=== PATIENT | male | born 1975 | race Caucasian/White ===

== ENCOUNTER 2023-12-08 21:01 | Inpatient (IN) | payer OTHER, SELFPAY ==
[2023-12-08] VITALS (52 sets, daily range): BP systolic 115–234; BP diastolic 73–146; BMI 21.9
[2023-12-08 16:16] LABS: Glucose - Point of Care 83 mg/dl (70-99)
--- NOTE | 2023-12-08 16:20 | ED.CVA ---
History of Present Illness
General
Chief Complaint: CVA/TIA Symptoms
Source: patient
Exam Limitations: none
Time Seen by Provider: 12/08/23 16:02
Nursing documentation reviewed up to this point in time: agreed with
Onset of Stroke Symptoms
Onset of symptoms known: Yes
Date of onset of symptoms: 12/08/23
Time of onset of symptoms: 15:15
Time pt last seen normal is known: Yes
Date last time pt seen normal: 12/08/23
Time last time pt seen normal: 15:15
History of Present Illness
History of Present Illness:
Patient is a 48-year-old male who presented to the health clinic at the present and had his blood pressure checked which turned out to be high and he stood up and fell to the right side and was found to have a right facial droop and weakness on the
right side. This was 45 minutes prior to the emergency department. Patient does state he has a headache. Patient denies history of hypertension, diabetes or elevated cholesterol. Patient reportedly had right-sided weakness and slurred speech
with right facial droop. Patient was brought in by EMS as a stroke alert and went straight to CAT scan.
Past History
Past History
ED Past Medical History: HTN and Other (Pneumothorax)
ED Past Surgical History: None
Social History
Tobacco: Non-smoker
Alcohol: None
Drug: None
Personal: Single
Living: with family
Review of Systems
Review of Systems
All Other Systems: ROS reviewed and negative except as documented in HPI and ROS
Constitutional: Reports no symptoms
EENT: Reports no symptoms
Respiratory: Reports no symptoms
Cardiac: Reports no symptoms
ABD/GI: Reports no symptoms
: Reports no symptoms
Musculoskeletal: Reports no symptoms
Skin: Reports no symptoms
Neurological: Reports headache and weakness; Denies numbness
Hematologic/Lymphatic: Reports no symptoms
Phy Exam
Physical Exam
Physical Exam:
Physical Exam
General: moderate distress, alert and appropriate, well nourished, well hydrated
HENT: Normocephalic and atraumatic, supple with no lymphadenopathy, no thyromegaly
Eyes: Clear sclera, conjuctiva without injection, extraocular muscles intact, questionable right superior lateral quadrantanopsia
Heart: Regular rhythm and rate. No S3, S4. No murmur. No NVD, bruit
Lungs: No respiratory distress, no stridor, lung sounds clear and equal bilaterally, chest wall symmetrical and nontender
Abdomen: Soft, nontender, no organomegaly, no CVA tenderness, BS good
Neuro: Alert and oriented x 3, CN with slurred speech and right facial droop, 4 out of 5 right-sided motor focality, no cerebellar dysfunction, sensory intact
Skin: no rash
Psychiatric: well kept. interactive and cooperative
Extremities: No edema, cyanosis, tenderness
Scores
NIH Stroke Score
Level of Consciousness: 0 - Alert
LOC Questions: 0-Answers both correctly
LOC Commands: 0-Performs both correctly
Best Horizontal Gaze: 0-Normal
Visual Harris: 1=Partial hemianopia
Facial Palsy: 1=Minor paralysis
Motor - Right Arm: 1=Drift < 10 seconds
Motor - Left Arm: 0=No drift 10 seconds
Motor - Right Le-Drift < 5 seconds
Motor - Left Le-No drift 5 seconds
Limb Ataxia: 0-Absent
Sensation: 0-Normal
Best Language: 1-Mild aphasia
Dysarthria: 1-Mild slurring
Extinction and Inattention: 0-No abnormality
Total Score:: 6
Course
Orders/Labs/Results
Orders:
Orders
12/08/23 15:57
CT Head W/o Cont STROKE ALERT Stat
Comment:
Reason For Exam: aphasia, r sided weakness
CT Head/Neck Ang STROKE ALERT Stat
Comment:
Reason For Exam: aphasia, R sided weakness
12/08/23 16:03
Electrocardiogram (*1) Stat
Reason for Study: Other
Other Reason for Exam: neuro symptoms
Cardiac Monitoring- Treatment ONCE
EKG- Treatment ONCE
12/08/23 16:11
Complete Blood Count/With Diff Urgent
Comprehensive Metabolic Panel Urgent
Erythrocyte Sed Rate Urgent
PTT Urgent
Prothrombin Time Urgent
Troponin I Urgent
12/08/23 16:17
Nicardipine 40 mg/200 ml [Cardene] 40 mg in 200 ml .ROUTE .STK-MED
12/08/23 16:21
Nicardipine 40 mg/200 ml [Cardene] 40 mg in 200 ml IV NOW
Initial dose in mg/hr, then titrate:: 5
Titrate to keep:: SBP 140 - 160 mmHg
Titrate by mg/hr:: 2.5 mg/hr
Frequency of titrations (minutes):: 5-15 minutes
Maximum dose in mg/hr:: 15
Begin to taper infusion when:: Remained at goal for 2hrs
Taper by mg/hr:: 2.5 mg/hr
Frequency of taper (minutes) if patient maintains goal:: every 15-30 minutes
Taper to off?: Yes
If infusion off & no longer maintaining goal:: Contact Provider
12/08/23 16:25
MRI Brain [MR Brain W/o & With Contrast] Urgent
Comment:
Reason For Exam: acute/subacute left basal ganglia infarct
Recent pill cam endoscopy?: No
12/08/23 17:02
Metoprolol [Lopressor] 5 mg .ROUTE .STK-MED ONE
12/08/23 17:07
Metoprolol [Lopressor] 5 mg IV NOW STA
12/08/23 18:17
Nicotine [Nicoderm Transdermal] 14 mg .ROUTE .STK-MED ONE
12/08/23 19:56
Acetaminophen [Tylenol] 1,000 mg PO NOW STA
12/09/23 08:00
Nicotine [Nicoderm Transdermal] 14 mg TRANSDERM DAILY
Abnormal Lab Results
12/08/23
16:11
RBC 3.99 L 10^6/uL
(4.70-6.10)
Hgb 11.4 L g/dL
(13.0-18.0)
Hct 34.0 L %
(39.0-52.0)
Absolute Neuts (auto) 6.7 H 10^3/uL
(1.4-6.5)
Absolute Monos (auto) 0.7 H 10^3/uL
(0.1-0.6)
Lymphocytes % 17.2 L %
(20.5-51.1)
ESR 24 H mm/hour
(0-20)
12/08/23 16:11
12/08/23 16:11
Vital Signs
Initial and Last Documented VS:
Initial Vital Signs
BP
234/125
12/08/23 16:00
Last Documented Vital Signs
Pulse Resp BP Pulse Ox
92 18 189/112 99
12/08/23 18:11 12/08/23 17:19 12/08/23 18:05 12/08/23 18:11
*Radiology
Radiology exam reviewed: radiology read reviewed (CT shows a left internal capsule acute/subacute infarct seen on CT, CTA and MRI.)
*Pulse Oximetry
Patient hypoxic: no
*EKG
Interpreted by ED Provider?: Yes
EKG Intrepretation Date: 12/08/23
EKG Intrepretation Time: 20:02
Interpretation: abnormal
Comparison EKG: no comparison EKG present
Heart Rate: 91
Rate: normal
Rhythm: sinus
[place]: normal axis
Interval: normal LA interval and long QT
QRS Pattern: normal QRS
Ischemia: no ischemia
*Shot Dropper Interpretation
Rate: normal
Interpretation: normal
Heart Rate: 90
Rhythm: sinus
*Critical Care Note
Total Time (30-74mins, 75-104mins- exclusive of procedures): 45 minutes
Update Note
Update Note:
Patient seen by neurology. Decision was made by them not to give tPA because internal Risk of Bleeding in Light of Uncontrolled Hypertension. Patient's Neurologic Exam Improved with Controlled Blood Pressure. Peers to Be a Hypertensive Emergency.
Patient Will Be Admitted
ED Attending Note
-
Portions of this chart may have been created with voice recognition software.� Occasional wrong word or��sound alike� substitutions may have occurred due to the inherent limitations of voice recognition software.
Discharge Plan
Departure
Patient Disposition: Admit
Date of Disposition: 12/08/23
Time of Disposition: 20:03
Admit to: Telemetry
Admit to doctor: Hospitalist
Presentation/result/management discussed w/ accepting MD/DO: Neurologist
Patient with high blood pressure during this ER visit?: Yes
Condition: Critical
Covid-19: Not Applicable
Discharge Problem:
CVA (cerebral vascular accident), Hypertensive emergency
Prescriptions:
No Action
hydrocodone-acetaminophen 1 TABLET tablet
1 tab PO Q4HPRN PRN (Reason: pain) Qty: 10 0RF
penicillin V potassium 500 MG tablet
500 mg PO Q6 Qty: 28 0RF
ibuprofen 600 MG tablet
600 mg PO Q6 Qty: 20 0RF
Referrals:
[facility] [Family Provider] -
Interventions
Interventions:
*Risk Screen - Suicide Last Done: 12/08/23 16:47
*General Assessment Last Done: 12/08/23 16:47
*Neglect/Abuse Screening Last Done: 12/08/23 16:47
*ED COVID-19 Vaccine History Last Done: 12/08/23 16:47
ED- Pulmonary Assessment Last Done: 12/08/23 16:18
ED- Neurological Assessment Last Done: 12/08/23 16:33
ED- Cardiac Assessment Last Done: 12/08/23 16:18
Discharge Date and Time
Print Language: TURKISH
[2023-12-08 16:26] LABS: % Basophils 0.6 % (0-2); % Eosinophils 3.4 % (0-6); % Immature Granulocytes 0.2 % (0-0.5); % Lymphocytes 17.2 % (20.5-51.1); % Neutrophils 71.6 % (42.2-75.2); Absolute Basophils 0.1 10^3/uL (0-0.2); Absolute Eosinophils 0.3 10^3/uL (0-0.7); Absolute Lymphocytes 1.6 10^3/uL (1.2-3.4); Absolute Monocytes 0.7 10^3/uL (0.1-0.6); Absolute Neutrophils 6.7 10^3/uL (1.4-6.5); Hemoglobin 11.4 g/dL (13.0-18.0); Mean Corp Hgb Conc. 33.5 g/dL (33.0-37.0); Mean Corpuscular Hgb 28.6 pg (27.0-31.0); Mean Corpuscular Volume 85.2 fL (80.0-94.0); Mean Platelet Volume 10.1 fL (7.4-10.4); Nucleated Red Blood Cells % 0 % (-); Platelet Count 273 10^3/uL (130-400); Red Blood Cell Count 3.99 10^6/uL (4.70-6.10); Red Cell Dist. Width 13.7 % (11.5-14.5); White Blood Cell Count 9.3 10^3/uL (4.8-10.8)
[2023-12-08] MEDS: CARDENE 200 IV ×2 (16:26→23:44)
[2023-12-08 16:37] LABS: Erythrocyte Sed Rate 24 mm/hour (0-20)
--- NOTE | 2023-12-08 16:39 | CON.NEURO4 ---
Consultation - Neurology 4
-
CONSULTING PHYSICIAN: Tylor Corea MD (Neurology)
REFERRING PHYSICIAN: ED/hospitalist
DICTATED BY: Tylor Corea
DATE/TIME OF REQUEST: December 08 2023
DATE/TIME OF CONSULTATION: December 08, 2023 1630
Reason for Consultation: Right-sided weakness
History of Present Illness:
This is a 48 year old right handed male who has presented to the hospital with chief complaint of right-sided weakness. He gives a history of drug use uncontrolled hypertension traumatic brain injury previous strokes with residual right sided
weakness. [facility]. He was seen in the medical unit for detox. At that time his blood pressure was elevated at 210/110. He started complaining of a headache and right arm weakness and passed out.
He was then brought into the emergency room and had an emergent CT head which revealed a large left centrum semiovale and basal ganglia encephalomalacia, extensive small vessel disease, focal atrophy of the frontal and occipital regions
I saw the patient in the emergency room and at time of my evaluation patient was awake but confused and oriented to self. Speech was slurred with expressive aphasia. He had a right facial weakness and mild right sided weakness. There was no
hyperreflexia or Babinski's.
Past Medical History: Drug use uncontrolled hypertension
Surgical History: Unknown
Family History: Unknown
Social History: Chronic drug use
Allergies: Unknown
Home Medications: Unknown
Review of Symptoms:
Patient denies any fever, headache, chest pain, shortness of breath, GI or symptoms.
�Per the HPI.�All systems are reviewed negative except above.
�
Vital Signs:
The patient has a Pulse 90 Resp17 BP 141/88 Pulse Ox 99
Physical Exam:
The patient is afebrile, heart sounds S1 and S2 are regular , and chest is clear to auscultation bilaterally.
NIH Stroke Scale (if applicable):
I performed the NIH stroke scale on the patient. The patient scored 6 points on the NIH stroke scale assessment, which were assigned as follows:
Neurologic Examination:
The patient is awake, confused and oriented x person. He is able to follow commands and can answer questions . There is aphasia and dysarthria.
On cranial nerve assessment, pupils are 3 mm bilateral, round and reactive to light and accommodation. Visual herzog are full. Extraocular movements are intact. Facial sensations are intact and bilaterally symmetrical,
there is right facial asymmetry. Hearing is intact bilaterally to normal conversation volume. Tongue palate and uvula are midline. Sternocleidomastoid strengths are full bilaterally.
Motor strengths are 4/5 right upper and lower extremities . Strength is 5 out of 5 left extremity. There is right drift or involuntary movement noted.
Deep tendon reflexes are + bilateral upper and lower extremities and Babinski is absent bilaterally.
Sensations of pain, touch, temperature and vibration are decreased on the right. There was no extinction noted on double simultaneous stimulation. Coordination is intact by finger to nose bilaterally.
Patient is bedbound and unable to test Romberg's or gait
Lab Results: Addendum
Neuro Imaging: CT head shows left centrum semiovale and basal ganglia encephalomalacia with focal areas of insult frontal and temporal occipital
Impression:
Mr. BREANNA JOHNSTON is a 48 year old M who has presented to the hospital with chief complaint of right-sided weakness secondary to uncontrolled hypertension
Differentials for the patient's presentation include:
1. Hypertensive encephalopathy
2. Extension of previous cerebrovascular infarction
Patient is not a candidate for TNK/ tPA due to uncontrolled hypertension and previous CVA with significant areas of encephalomalacia subcortically that are likely to hemorrhage bleed:
IV Tenecteplase/IAT candidacy
Recommendations:
1. Blood pressure control to keep MAP 100
2. Detox protocol
3. Aspirin 325
4. MRI of brain
5. Echocardiogram
6. PT/OT
7. Depakote 1000mg loading with Depakote 500 mg p.o. twice daily maintenance
Discussed patient care with: ED
Total Time Spent with Patient (in minutes): 30
Vital Signs and Labs
-
Vital Signs and Labs:
Vital Signs
Pulse Resp BP Pulse Ox
90 17 141/88 99
12/08/23 16:40 12/08/23 16:40 12/08/23 16:40 12/08/23 16:40
Lab Results
12/08/23 16:11
12/08/23 16:11
PT 13.5 Sec (11.4-14.6) 12/08/23 16:11
INR 1.05 12/08/23 16:11
APTT 30.2 Sec (23.4-35.0) 12/08/23 16:11
Sodium 139 mmol/L (135-145) 12/08/23 16:11
Potassium 4.5 mmol/L (3.5-5.1) 12/08/23 16:11
BUN 20 mg/dl (9-20) 12/08/23 16:11
Glucose 80 mg/dl (70-99) 12/08/23 16:11
Calcium 9.9 mg/dl (8.4-10.2) 12/08/23 16:11
[2023-12-08 16:40] LABS: ALT (SGPT) 16 U/L (0-50); AST (SGOT) 23 U/L (17-59); Albumin 4.8 g/dl (3.5-5.0); Alkaline Phosphatase 92 U/L (38-126); Blood Urea Nitrogen 20 mg/dl (9-20); Calcium 9.9 mg/dl (8.4-10.2); Carbon Dioxide 27 mmol/L (22-30); Chloride 103 mmol/L (98-107); Estimated Creatinine Clearance 73 ml/min; Glucose 80 mg/dl (70-99); Potassium 4.5 mmol/L (3.5-5.1); Sodium 139 mmol/L (135-145); Total Bilirubin 1.1 mg/dl (0.2-1.3); Total Protein 7.9 g/dl (6.3-8.2); eGFR > 60.00
[2023-12-08 16:42] LABS: APTT 30.2 Sec (23.4-35.0); INR 1.05; PT 13.5 Sec (11.4-14.6)
[2023-12-08 16:52] LABS: Troponin I < 0.012 ng/ml
[2023-12-08] MEDS: LOPRESSOR 5 MG IV (17:09)
[2023-12-08] MEDS: NICODERM TRANSDERMAL 14 MG TRANSDERM (18:19)
[2023-12-08] MEDS: TYLENOL 1000 MG PO (20:03)
--- NOTE | 2023-12-08 20:40 | HPS.HSE ---
Family Physician
-
Family Physician: [facility]
Chief Complaint
-
Syncope / R Weakness
History of Present Illness
Patient is a 48y M with PMH significant for suspected substance abuse who presents to ED from detention for evaluation of syncopal event, hypertension and slurred speech. Patient states that he was on his way to the [facility] for a routine visit
and that is the last thing he remembers. He denies any complaints / symptoms prior to losing consciousness. Custodial staff note that patient developed R facial droop and R weakness and then passed out. His BP was markedly elevated in the infirmary
> 200 systolic. He was transported to the ED for further evaluation.
Patient regained consciousness in the ED. He was initially somewhat confused. At the time of my exam, patient was awake and alert.
He denies any prior history of medical issues, trauma / injury, hypertension, prior strokes, etc.
Patient denies any substance use with the exception of cigarettes and medical marijuana; however, he does admit that he uses a workout supplement called 'Kraze' which he notes 'will make you test positive for amphetamines'.
Patient has been in the detention for about one week in substance withdrawal program.
At the time of my examination, patient complains of diffuse headache and some slurred speech. He denies any other complaints including chest pain, palpitations, numbness / tingling, extremity weakness, etc.
Medical History
Past Medical History
Past Medical History: Reports Other
Additional Past Medical History:
Substance Use Disorder
Spontaneous Pneumothorax
Past Surgical History: Reports None
Social History
Tobacco: Smoker (Current every day smoker. Approx 1 ppd.)
Alcohol: None
Drug: Marijuana ('Medicinal'. ) and Other (Amphetamines / 'Kraze')
Living: Custodial
Family History
Family History: Not pertinent
Allergies / Home Medications
Allergies reflects when Allergies were last updated in [facility].
Home Medications with original date entered in [facility]
Allergy/Medication List:
Allergies
Allergy/AdvReac Type Severity Reaction Status Date / Time
No Known Allergies Allergy Verified 12/08/23 16:24
Home Medications
clonazepam 0.5 mg tablet 0.5 mg PO HS 12/08/23
diphenhydramine HCl 25 mg tablet 25 mg PO BID 12/08/23
quetiapine 25 mg tablet 25 mg PO DAILY 12/08/23
quetiapine 50 mg tablet 50 mg PO HS 12/08/23
Review of Systems
-
History Source: Patient
A 12 point ROS was completed and negative except as noted: Yes
Constitutional: Denies Fever or Chills
EENT: Denies Sore Throat
Respiratory: Denies Cough or Trouble Breathing
Cardiac: Denies Chest Pain or Palpitations
Abdomen/GI: Denies Abdominal Pain, Nausea, Vomiting or Diarrhea
: Denies Dysuria, Frequency or Flank Pain
Musculoskeletal: Denies Joint Pain or Edema
Neurological: Reports Headache and Other (Slurred speech); Denies Weakness or Numbness
Psych: Reports Anxiety; Denies Depression
Physical Exam
Vital Signs
Vital Signs
Pulse Resp BP Pulse Ox
92 18 189/112 99
12/08/23 18:11 12/08/23 17:19 12/08/23 18:05 12/08/23 18:11
Physical Exam
General: Other (Anxious 48y M in mild distress due to anxiety.)
HEENT: PERRLA and Other (Dry MM.)
Respiratory: Clear; No Wheezes, Rales or Rhonchi
Cardiac: S1/S2 and Regular Rhythm; No Murmur
GI: Soft, Non Tender, Non Distended and Normal Bowel Sounds
Musculoskeletal: No Clubbing, No Cyanosis and No Edema
Neuro: AO x 3 and Other (R facial droop. Dysarthria. Perhaps mild RUE weakness compared to the L.)
Psych: Agitated and Anxious
Laboratory Results
-
12/08/23 16:11
12/08/23 16:11
Laboratory Results
PT 13.5 Sec (11.4-14.6) 12/08/23 16:11
INR 1.05 12/08/23 16:11
APTT 30.2 Sec (23.4-35.0) 12/08/23 16:11
Total Bilirubin 1.1 mg/dl (0.2-1.3) 12/08/23 16:11
AST 23 U/L (17-59) 12/08/23 16:11
ALT 16 U/L (0-50) 12/08/23 16:11
Alkaline Phosphatase 92 U/L (38-126) 12/08/23 16:11
Troponin I < 0.012 ng/ml 12/08/23 16:11
Impression/Plan
-
A/P: Patient is a 48y M with no significant PMH who presents to ED from detention for evaluation of R sided weakness and syncopal event.
Acute on Chronic L Thalamic CVA
Hypertensive Emergency
- Admit to ICU for further evaluation and treatment.
- CT, CTA and MRI have been completed and were reviewed.
- Imaging suggests old L thalamic infarct / area of encephalomalacia with acute surrounding area of ischemia.
- This likely explains his presenting symptoms.
- Patient not aware of any prior stroke, TBI, etc.
- BP markedly elevated on arrival - improved on nicardipine.
- Continue nicardipine and titrate as needed.
- Begin oral medications in the AM for BP control and titrate off of IV infusion.
- Neurology evaluation appreciated.
- Continue Depakote as per Neuro recommendations.
- ASA daily for now.
- Follow for changes in neuro exam.
- Echo in the AM.
- Suspect that etiology of his stroke(s) is hypertension related to substance abuse and / or subsequent withdrawal.
Substance Use Disorder
- Suspected amphetamine abuse - although patient denies this as noted in HPI.
- Currently anxious / agitated somewhat.
- Continue withdrawal regimen from detention.
- Add PRN BZDs for breakthrough symptoms of agitation / anxiety.
- Check UDS.
DVT Prophylaxis: SCDs
Code Status: Full
[2023-12-08 22:13] LABS: Urine Albumin Negative (Neg - Trace); Urine Bilirubin Negative (Negative); Urine Character Clear (Clear); Urine Color Yellow; Urine Glucose Negative (Negative); Urine Ketone Trace (Negative); Urine Leukocyte Negative (Negative); Urine Nitrite Negative (Negative); Urine Occult Blood Negative (Negative); Urine Urobilinogen Negative (Neg - 1+)
[2023-12-08 22:20] LABS: Amphetamines Negative (Negative); Barbiturates Negative (Negative); Benzodiazepines Negative (Negative); Buprenorphine Negative (Negative); Cocaine Negative (Negative); Marijuana Positive (Negative); Methadone Negative (Negative); Methamphetamines Negative (Negative); Opiates Negative (Negative); Phencyclidine Negative (Negative); Tricyclic Antidepressants Negative (Negative)
[2023-12-08] MEDS: SEROQUEL 50 MG PO (23:43)
[2023-12-08] MEDS: KLONOPIN 0.5 MG PO (23:43)
[2023-12-09] VITALS (51 sets, daily range): BP systolic 114–163; BP diastolic 67–138; PULSE 103; O2SAT 97; BMI 21.1
--- NOTE | 2023-12-09 00:04 | PTCARENOTE ---
Pt. arrived from ED approx, 2300 to ICU.
Slurred speech noted, Normocephalic and atraumatic, right facial droop, 4 out of 5 right-sided motor focality, no cerebellar dysfunction, sensory intact
Hypertensive, tachycardic w/o ectopy, normothermic.
Cardene gtt. at 5, will continue to attempt titrating off.
--- NOTE | 2023-12-09 00:35 | PTCARENOTE ---
Pt. is reportedly from a locked unit at [facility] w/o phone privileges to family.
[2023-12-09] MEDS: ATIVAN 0.5 MG IV (02:03)
--- NOTE | 2023-12-09 04:09 | PTCARENOTE ---
NIH 4, still mild dysarthria, aphasia improved from prior assessment. 4/5 right upper/lower extrem. 5/5 L side.
Remains tachycardic, increased MAP over 100, cardene increased.
[2023-12-09 04:24] LABS: Hematocrit 36.6 % (39.0-52.0); Hemoglobin 12.8 g/dL (13.0-18.0); Mean Corpuscular Hgb 29.8 pg (27.0-31.0); Mean Corpuscular Volume 85.1 fL (80.0-94.0); Mean Platelet Volume 9.7 fL (7.4-10.4); Platelet Count 237 10^3/uL (130-400); Red Cell Dist. Width 13.6 % (11.5-14.5); White Blood Cell Count 9.9 10^3/uL (4.8-10.8)
[2023-12-09 04:47] LABS: Blood Urea Nitrogen 16 mg/dl (9-20); Calcium 8.8 mg/dl (8.4-10.2); Carbon Dioxide 25 mmol/L (22-30); Chloride 105 mmol/L (98-107); Estimated Creatinine Clearance 89 ml/min; Glucose 103 mg/dl (70-99); HDL Cholesterol 52 mg/dl; LDL Cholesterol, Calculated 161 mg/dl; Magnesium 1.9 mg/dl (1.6-2.3); Phosphorus 3.4 mg/dl (2.5-4.5); Potassium 3.9 mmol/L (3.5-5.1); Sodium 139 mmol/L (135-145); Total Cholesterol 233 mg/dl (50-199); Triglyceride 104 mg/dl (10-149); Very Low Density Lipoprotein 20 mg/dl (0-30); eGFR > 60.00
[2023-12-09] MEDS: ATIVAN 2 MG IV (06:16)
[2023-12-09] MEDS: NSS (PRESERVATIVE FREE) 1 ML IV (06:16)
[2023-12-09] MEDS: CARDENE 200 IV (06:18)
--- NOTE | 2023-12-09 06:31 | PTCARENOTE ---
HR in 150s, icu ashely notified, 2mg Ativan ordered. morning ECG completed.
--- NOTE | 2023-12-09 07:08 | CON.INTV ---
Addendum entered and electronically signed by Linda Pelaez DO 12/09/23 15:21:
Doing well off cardene, BP management per team
Not to be a 1PPD smoker, can follow with us as OP if there is any new/worsening respiratory complaints
Encourage continued smoking cessation
Transfer initiated to tele, we will sign off at this time please call with questions
Original Note:
Consultation
Consultation Request
Date/Time Consultation Requested: 12/08/23
Date/Time Consultation Performed: 12/09/23
Performing Provider: Benigno
Reason for Consultation: Critical Care
Medical History
-
History of Present Illness:
Patient is a 48 year old M with PMH significant for suspected substance abuse who presents to ED from long term for evaluation of syncopal event, hypertension and slurred speech. Jail staff noted that patient developed R facial droop and R
weakness and then passed out. His BP was markedly elevated in the [facility] > 200 systolic. He was transported to the ED for further evaluation.
Patient denies any substance use with the exception of cigarettes and medical marijuana; however, he does admit that he uses a workout supplement called 'Craze' which contains meth-like substances. Patient has been in the long term for about one week
in substance withdrawal program.
In ER, had an emergent CT head which revealed a large left centrum semiovale and basal ganglia encephalomalacia, extensive small vessel disease, focal atrophy of the frontal and occipital regions.
Patient was deemed not a candidate for TNK/ tPA due to uncontrolled hypertension with significant areas of encephalomalacia subcortically that are likely to bleed.
Admitted to ICU for hypertensive emergency, on cardene gtt.
Past Medical History
Past Medical History: Other (see below)
Social History
Tobacco: Non-smoker
Alcohol: None
Drug: Marijuana and Other (supplement abuse)
Family History
Family History: Reviewed & Not Pertinent
Allergies / Home Medications
Allergies
Allergy/AdvReac Type Severity Reaction Status Date / Time
No Known Allergies Allergy Verified 12/08/23 16:24
Home Medications
�Medication �Instructions �Recorded �Confirmed �Last Taken �Type
clonazepam 0.5 mg tablet 0.5 mg PO HS 12/08/23 12/08/23 Unknown History
diphenhydramine HCl 25 mg tablet 25 mg PO BID 12/08/23 12/08/23 Unknown History
quetiapine 25 mg tablet 25 mg PO DAILY 12/08/23 12/08/23 Unknown History
quetiapine 50 mg tablet 50 mg PO HS 12/08/23 12/08/23 Unknown History
Review of Systems
-
History Source: Patient
All other systems: Negative unless noted
Neuro: Headache
Vitals / Labs / Diagnostic Testing
Vital Signs
Temp Pulse Resp BP Pulse Ox
98.6 F 128 24 148/88 96
12/09/23 03:15 12/09/23 06:30 12/09/23 06:30 12/09/23 06:30 12/09/23 06:30
Lab Data
12/09/23 03:48
12/09/23 03:48
Laboratory Results
12/08/23
16:11
PT 13.5
INR 1.05
APTT 30.2
Diagnostic Testing:
Physical Exam
-
HEENT: Normocephalic, Anicteric and Moist Mucous Membranes
Cardiovascular: S1/S2 and Regular Rhythm
Respiratory: Clear and Non-Labored Respirations
GI: Soft, Non Distended and Non Tender
Neurology: Awake, Alert, Oriented, AO x 3, No Motor Deficits and Other (lacking insight)
Skin: Warm, Dry and Good Color
General: Comfortable and Other (NAD)
Assessment
-
Patient is a 48 year old M with PMH significant for suspected substance abuse who presents to ED from long term for evaluation of syncopal event, hypertension and slurred speech. Jail staff noted that patient developed R facial droop and R
weakness and then passed out. His BP was markedly elevated in the [facility] > 200 systolic. He was transported to the ED for further evaluation.
Patient denies any substance use with the exception of cigarettes and medical marijuana; however, he does admit that he uses a workout supplement called 'Craze' which contains meth-like substances.
In ER, had an emergent CT head which revealed a large left centrum semiovale and basal ganglia encephalomalacia, extensive small vessel disease, focal atrophy of the frontal and occipital regions. MRI showing acute on chronic lateral left thalamic
infarct. Patient was deemed not a candidate for TNK/ tPA due to uncontrolled hypertension with significant areas of encephalomalacia subcortically that are likely to bleed. Admitted to ICU for hypertensive emergency, on cardene gtt.
Hypertensive Emergency
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
Encephalomalacia
UDS + THC
Headache
Suspect vascular dementia
Conditions present INCIDENT RESPONSE MANAGER
Substance abuse
Plan
Neurologic decline, MRI with acute on chronic CVA/encephalomalacia
Rather profound findings for his age, related to substance abuse?
Baseline MS--unclear, lacks insight during our conversation, forgetful--suspect some early vascular dementia
Psychiatric history likely, he is taking seroquel and klonopin at home
UDS + THC
Craze-health effects researched include meth-like substance, can be + on UDS
Neuro eval appreciated, not a candidate for TNK, high risk for bleeding
Neuroimaging reviewed
5/10 GARCIA pain noted
Pain/sedation: PRN
RASS goals: 0
Hemodynamically stable, not requiring pressors.
Cardene gtt initiated for hypertensive emergency SBP>200 on presentation
HR sustained >130
Cardiac history reviewed--none/known
Consider cards eval, no prior ECHO for review
Need BP management and OP regiment
Monitor on telemetry
Oxygen needs: stable on RA
Prior history of lung disease: none, nonsmoker
Supplemental O2 as indicated to maintain sats > 89%
CXR/CT reviewed indicating NAD
Diet advanced
Speech therapy eval obtained
Aspiration precautions, HOB > 30 degrees
GI prophylaxis if indicated for mechanical ventilation >48 hours, prior history of GERD, stress ulcer formation in the critically ill
Creat at baseline, no history of renal disease
Void trials
Follow urine output, critical I/Os
Replete electrolytes as needed
No signs/symptoms suspicious for infectious etiology at this time
Observe off antibiotics for now
Follow fever trend, WBC count
CBC stable, no signs of bleeding or coagulopathy.
DVT prophylaxis as assessed based on risk, including mechanical SCDs
Can transfuse if indicated for Hb <7, plt < 10
INR WNL
No prior h/o diabetes or thyroid disease
Monitor accuchecks PRN/SS coverage if needed
We will follow
Diagnostic Data
Chest X-Ray:
CT Scan: HEAD 12/08/23- Predominantly chronic appearing left basal ganglia infarct. A component of acute/subacute infarction in this region is difficult to exclude. MRI would be of greater sensitivity.
H&N - No significant vascular occlusion, aneurysm or dissection.
MRI 12/08/23- Acute on chronic lateral left thalamic infarct.
Echo:
PFT's:
Reports and relevant images were personally reviewed.
-----
Critical care time 60 mins -- this includes review of history, physical exam, medications, hemodynamic/ventilator parameters, laboratory data, imaging and discussion with house staff, pharmacy, respiratory therapy, horticultural farmer, and nursing.
--- NOTE | 2023-12-09 07:10 | W.PN.HOSP.TC ---
Today's Communication/Plan
-
ST/PT/OT
Blood Pressure Control
Stable for downgrade to Tele
Assessment / Plan
Assessment / Plan
Physical Exam
General: No acute distress
HEENT: PERRLA normocephalic atraumatic
Respiratory: Clear; No Wheezes, Rales or Rhonchi
Cardiac: S1/S2 and Regular Rhythm; No Murmur
GI: Soft, Non Tender, Non Distended and Normal Bowel Sounds
Musculoskeletal: No Clubbing, No Cyanosis and No Edema
Neuro: AO x 3 Dysarthria
Psych: Calm
A/P: Patient is a 48y M with no significant PMH who [facility] for evaluation of R sided weakness and syncopal event.
Acute on Chronic L Thalamic CVA
Hypertensive Emergency
- Admit to ICU for further evaluation and treatment.
- CT, CTA and MRI have been completed and were reviewed.
- Imaging suggests old L thalamic infarct / area of encephalomalacia with acute surrounding area of ischemia.
- BP markedly elevated on arrival - improved on nicardipine. since weaned off
- Cardio eval appreciated started on coreg and lisinopril
- Neurology evaluation appreciated.
- Continue Depakote as per Neuro recommendations.
- ASA daily for now.
- neurochecks NIH
- Echo pending (not routinely done on weekends)
- Suspect that etiology of his stroke is hypertension related to substance abuse and / or subsequent withdrawal.
-ST/PT/OT eval appreciated
Substance Use Disorder
- Suspected amphetamine abuse - although patient denies this as noted in HPI.
- Continue withdrawal regimen from pen[facility]entiary.
- Add PRN BZDs for breakthrough symptoms of agitation / anxiety.
- UDS.appreciated positive for marijuana only
DVT Prophylaxis: SCDs
Code Status: Full
Stable for downgrade to Tele
I spent a total of 56 minutes with the patient or on the floor. More than 50% of this time involved counseling and coordination of care.
Anticipated Discharge: 24 - 48 hours
Subjective/Interval History
-
Date of Service: December 09, 2023
No acute distress. Resting comfortably in bed. Denies new acute issues. Reports feeling well
Objective Data
-
Labs:
Laboratory Results
12/09/23
03:48
WBC 9.9
Hgb 12.8 L
Hct 36.6 L
Plt Count 237
Sodium 139
Potassium 3.9
Chloride 105
Carbon Dioxide 25
BUN 16
Creatinine 0.9
Glucose 103 H
Calcium 8.8
Vital Signs:
Vital Signs
Temp Pulse Resp BP Pulse Ox
98.6 F 128 24 148/88 96
12/09/23 03:15 12/09/23 06:30 12/09/23 06:30 12/09/23 06:30 12/09/23 06:30
I&O
12/08/23 12/09/23 12/10/23
06:59 06:59 06:59
Intake Total 200 / 200
Output Total 400 / 400
Balance -200 / -200
[2023-12-09] MEDS: SEROQUEL 25 MG PO (08:03)
[2023-12-09] MEDS: DEPAKOTE (12 HR RELEASE) 500 MG PO ×2 (08:03→19:44)
[2023-12-09] MEDS: LOW STRENGTH ASPIRIN 81 MG PO (08:03)
[2023-12-09] MEDS: BENADRYL 25 MG PO ×2 (08:03→19:44)
--- NOTE | 2023-12-09 09:34 | CON.CAR ---
Addendum entered and electronically signed by Rodolfo Gu MD 12/09/23 11:45:
Patient seen and examined in collaboration with [employer]SHAL; agree with below.
-48-year-old male with hypertension (on no medications at home) admitted with a CVA secondary to uncontrolled hypertension (hypertensive emergency).
-Patient is currently on a Cardene drip.
-Will start the patient on Coreg 6.25 mg twice daily and uptitrate as indicated.
-Will start the patient on lisinopril 10 mg twice daily and increase as needed
-Try to wean off Cardizem drip.
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
Original Note:
Consultation
Consultation Request
Date/Time Consultation Requested: 12/09/2023 08:15
Date/Time Consultation Performed: 12/09/2023 09:35
Requesting Provider: Dr. Garza
Performing Provider: DAISY Arroyo for Dr. Gu
Reason for Consultation: Hypertensive emergency, CVA
Medical History
-
Chief Complaint: Hypertension with right-sided weakness
History of Present Illness:
James Redd is a 48-year-old male currently at [facility] who presented to the clinic with high blood pressure (systolic >200 mmHg). He stood up and fell to the right side. He then was found to have a right sided facial
droop with persistent right-sided weakness. This occurred 45 minutes prior to arrival to the emergency department. Emergent head CT confirmed CVA. He was deemed not a candidate for TNK/tPA due to uncontrolled hypertension with significant areas
of encephalomalacia due to high risk of bleeding. He was started on a Cardene drip.
Past Medical History
Past Medical History: HTN and Other (Pneumothorax)
Social History
Tobacco: Former Smoker
Alcohol: None
Drug: Marijuana and Other (Possible supplement abuse)
Living: [facility]
Family History
Family History: Reviewed & Not Pertinent (Denies early CAD and SCD)
Allergies / Home Medications
Allergy/AdvReac Type Severity Reaction Status Date / Time
No Known Allergies Allergy Verified 12/08/23 16:24
�Medication �Instructions �Recorded �Confirmed �Type
clonazepam 0.5 mg tablet 0.5 mg PO HS 12/08/23 12/08/23 History
diphenhydramine HCl 25 mg tablet 25 mg PO BID 12/08/23 12/08/23 History
quetiapine 25 mg tablet 25 mg PO DAILY 12/08/23 12/08/23 History
quetiapine 50 mg tablet 50 mg PO HS 12/08/23 12/08/23 History
Review of Systems
-
History Source: Patient
All other systems: Negative unless noted
Constitutional: Fatigue
EENT: No Symptoms
Respiratory: No Symptoms
Cardiac: No Symptoms
Abdomen/GI: No Symptoms
: No Symptoms
Musculoskeletal: No Symptoms
Skin: No Symptoms
Neurological: Headache and Weakness
Endocrine: No Symptoms
Hematologic/Lymphatic: No Symptoms
Physical Exam
Vital Signs
Temp Pulse Resp BP Pulse Ox
98.6 F 128 24 148/88 96
12/09/23 03:15 12/09/23 06:30 12/09/23 06:30 12/09/23 06:30 12/09/23 09:22
Lab Results
12/09/23 03:48
12/09/23 03:48
Troponin I < 0.012 ng/ml 12/08/23 16:11
Physical Exam
General: Well Developed, Well Nourished, No Apparent Distress and Comfortable
HEENT: Normocephalic, Anicteric and Moist Mucous Membranes
Respiratory: Clear and Non Labored Respirations
Cardiac: S1/S2
Breast: Deferred by me
GI: Soft, Non Tender, Non Distended and Normal Bowel Sounds
Rectal: Deferred by Provider
Genito-urinary: No Costovertebral Tender
Musculoskeletal: No Clubbing, No Cyanosis and No Edema
Skin: Warm and Dry
Neuro: AO x 3
Hematologic/Lymphatic: No Lymphadenopathy
Psych: Calm
Impression / Plan
-
Hypertensive emergency
-Currently on 3.5 mg/hr of Cardene
-Start carvedilol 6.25 mg twice daily and lisinopril 10 mg daily
-TSH with reflex T4 added
CVA, acute on chronic lateral left femoral neck infarct
-TTE Monday, we can consider PARAM but this is likely in the setting of uncontrolled hypertension
-Neurology following
Dyslipidemia
-Lipid panel 12/09/2023: TC 233, LDL 161, HDL 52, TG 104
-Goal LDL <70, start atorvastatin 40 mg daily
Prolonged QTc, EKG ordered for today
Former tobacco abuse, 1 PPD, has not smoked for 1 week
Supplement use, reports the name of [employer], uses as pre-workout, contains 350 mg of caffeine
Data Reviewed
-
EKG: Report Reviewed by me (Sinus rhythm, nonspecific T wave abnormality, prolonged QT, rate 91)
CT Scan: Report Reviewed by me (Head: Predominantly chronic appearing left basal ganglia infarct. A component of acute/subacute infarction in this region is difficult to exclude.) and Other (CTA: No significant vascular occlusion, aneurysm or
dissection.)
MRI: Report Reviewed by me (Brain: Acute on chronic lateral left thalamic infarct.)
Labs: Labs Reviewed by me
Old Records: Reviewed
[2023-12-09] MEDS: COREG 6.25 MG PO ×2 (10:01→19:44)
[2023-12-09] MEDS: ZESTRIL 10 MG PO ×2 (10:01→19:44)
[2023-12-09 11:26] LABS: TSH Reflex To Free T4 0.88 uIU/ml (0.47-4.68)
--- NOTE | 2023-12-09 14:27 | PTOTSP ---
ST Acute Care Evaluation
Pt currently presents with oropharyngeal and esophageal phases that are WFL for safe PO intake of all solids and liquids. No overt s/s of penetration or aspiration observed at bedside. Please note that silent aspiration cannot be ruled out at
bedside.
Pt demonstrates a mild and moderate dysarthria characterized by a low vocal volume and imprecise articulation of consonant speech sounds. Pt presents with receptive and expressive language that are generally intact. Pt's expressive language
assessment was limited as pt preferred not to elaborate upon his answers - difficult to differentiate a deficit from a personality/preference in communication.
Recommendations:
- Continue with regular solids, thin liquids, and meds as tolerated.
- General aspiration precautions.
- No skilled dysphagia services warranted at this time.
- Pt to continue to receive BALL HOLDER services while admitted (and upon d/c) for dysarthria tx and further expressive language assessment.
--- NOTE | 2023-12-09 15:49 | PTCARENOTE ---
Pt off cardene and started on oral BP meds. Current BP - 131/83. HR has also improved to 80s NSR. Neuro status unchanged - still having dysarthria, R upper and lower extremity weakness, and mild R facial droop. Eating/drinking w/o issue.
Drowsy/lethargic but responds to verbal stimuli and is oriented. Senior Living guards remain at bedside.
[2023-12-09] MEDS: LIPITOR 40 MG PO (17:59)
--- NOTE | 2023-12-09 18:05 | PTCARENOTE ---
Pt transferred to acute care - room 427. Report given to FATOUMATA Adams. Pt brought to room by RN and bedside neuro assessment done. Symptoms have improved at this time - mild R facial droop, equal strength bilaterally, mild dysarthria. Pt says these
symptoms have been waxing and waning for months.
--- NOTE | 2023-12-09 18:33 | PTCARENOTE ---
Patient received from the ICU. Ambulated with assistance from stretcher to bed. Neuro check performed with PROTECTION ANALYST. Patient neurologically intact/stable. No further needs assessed at this time. VSS.
--- NOTE | 2023-12-09 18:45 | PTCARENOTE ---
Patient stated no BM for 11 days. Denied wanting a stool softener. MD made aware. Abdomen SNT, + BS normoactive, no distention or pain. No further needs assessed at this time.
[2023-12-09] MEDS: SEROQUEL 50 MG PO ×2 (19:44→19:49)
[2023-12-09] MEDS: KLONOPIN 0.5 MG PO ×2 (19:45→19:49)
[2023-12-09] MEDS: NICODERM TRANSDERMAL 14 MG TRANSDERM (19:45)
[2023-12-10] VITALS (7 sets, daily range): BP systolic 111–153; BP diastolic 61–92; PULSE 86; BMI 21.7
--- NOTE | 2023-12-10 06:59 | W.PN.HOSP.TC ---
Today's Communication/Plan
-
sputum culture
Augmentin suspected pneumonia
Probiotic
PT/OT
ASA statin
ECHO pending
Assessment / Plan
Assessment / Plan
Physical Exam
General: No acute distress
HEENT: PERRLA normocephalic atraumatic
Respiratory: Clear; No Wheezes, Rales or Rhonchi
Cardiac: S1/S2 and Regular Rhythm; No Murmur
GI: Soft, Non Tender, Non Distended and Normal Bowel Sounds
Musculoskeletal: No Clubbing, No Cyanosis and No Edema
Neuro: AO x 3 Dysarthria
Psych: Calm
A/P: Patient is a 48y M with no significant PMH who presents to ED from alf for evaluation of R sided weakness and syncopal event.
Acute on Chronic L Thalamic CVA
Hypertensive Emergency
- CT, CTA and MRI have been completed and were reviewed.
- Imaging suggests old L thalamic infarct / area of encephalomalacia with acute surrounding area of ischemia.
- BP markedly elevated on arrival - improved on nicardipine. since weaned off downgraded to Tele from ICU
- Cardio eval appreciated started on coreg and lisinopril
- Neurology evaluation appreciated.
- Continue Depakote as per Neuro recommendations.
- ASA daily
- neurochecks NIH
- Echo pending (not routinely done on weekends)
- Suspect that etiology of his stroke is hypertension related to substance abuse and / or subsequent withdrawal.
-ST/PT/OT eval appreciated
Hyperlipidemia
-goal LDL<55
-started on atorvastatin 40 mg daily
Substance Use Disorder
- Suspected amphetamine abuse - although patient denies this as noted in HPI.
- Continue withdrawal regimen from alf.
- Add PRN BZDs for breakthrough symptoms of agitation / anxiety.
- UDS.appreciated positive for marijuana only
Productive Cough yellow sputum
-likely pneumonia
-Augmentin started 12/09 planned for 5 day course
-follow up sputum culture
DVT Prophylaxis: SCDs
Code Status: Full
I spent a total of 55 minutes with the patient or on the floor. More than 50% of this time involved counseling and coordination of care.
Anticipated Discharge: 24 - 48 hours
Subjective/Interval History
-
Date of Service: December 10, 2023
No acute distress sitting up comfortably in bed. Reports cough productive yellow sputum.
Objective Data
-
Labs:
Laboratory Results
12/10/23
06:00
WBC Pending
Hgb Pending
Hct Pending
Plt Count Pending
Sodium Pending
Potassium Pending
Chloride Pending
Carbon Dioxide Pending
BUN Pending
Creatinine Pending
Glucose Pending
Calcium Pending
Vital Signs:
Vital Signs
Temp Pulse Resp BP Pulse Ox
99.1 F 92 16 146/86 98
12/10/23 02:46 12/10/23 02:46 12/10/23 02:46 12/10/23 02:46 12/10/23 02:46
I&O
12/08/23 12/09/23 12/10/23
06:59 06:59 06:59
Intake Total 200 / 200 745 / 745
Output Total 400 / 400 800 / 800
Balance -200 / -200 -55 / -55
[2023-12-10 07:59] LABS: Hematocrit 35.2 % (39.0-52.0); Hemoglobin 12.1 g/dL (13.0-18.0); Mean Corp Hgb Conc. 34.4 g/dL (33.0-37.0); Mean Corpuscular Hgb 28.7 pg (27.0-31.0); Mean Corpuscular Volume 83.6 fL (80.0-94.0); Mean Platelet Volume 10.7 fL (7.4-10.4); Platelet Count 244 10^3/uL (130-400); Red Blood Cell Count 4.21 10^6/uL (4.70-6.10); Red Cell Dist. Width 14.1 % (11.5-14.5); White Blood Cell Count 14.7 10^3/uL (4.8-10.8)
[2023-12-10 08:29] LABS: Blood Urea Nitrogen 27 mg/dl (9-20); Calcium 9.2 mg/dl (8.4-10.2); Carbon Dioxide 22 mmol/L (22-30); Chloride 105 mmol/L (98-107); Estimated Creatinine Clearance 61 ml/min; Glucose 88 mg/dl (70-99); Phosphorus 4.1 mg/dl (2.5-4.5); Potassium 4.4 mmol/L (3.5-5.1); Sodium 137 mmol/L (135-145); eGFR > 60.00
[2023-12-10] MEDS: ZESTRIL 10 MG PO ×2 (09:00→20:40)
[2023-12-10] MEDS: LOW STRENGTH ASPIRIN 81 MG PO (09:00)
[2023-12-10] MEDS: COREG 6.25 MG PO ×2 (09:00→20:40)
[2023-12-10] MEDS: SEROQUEL 25 MG PO (09:00)
[2023-12-10] MEDS: BENADRYL 25 MG PO ×2 (09:00→20:40)
[2023-12-10] MEDS: NICODERM TRANSDERMAL 14 MG TRANSDERM (11:21)
[2023-12-10] MEDS: DEPAKOTE (12 HR RELEASE) 500 MG PO ×2 (11:21→20:40)
--- NOTE | 2023-12-10 12:08 | W.PN.CD ---
Today's Communication / Plan
-
-Blood pressure controlled; now off of Cardene drip.
-Continue Coreg 6.25 mg twice daily and lisinopril 10 mg twice daily.
-TTE tomorrow.
-Goal LDL <55; started on atorvastatin 40 mg daily.
Impression / Plan
-
Hypertensive emergency
-Blood pressure controlled; now off of Cardene drip.
-Continue Coreg 6.25 mg twice daily and lisinopril 10 mg twice daily.
-TSH normal.
CVA, acute on chronic lateral left femoral neck infarct
-TTE tomorrow.
-Neurology following.
Dyslipidemia
-Lipid panel 12/09/2023: TC 233, LDL 161, HDL 52, TG 104
-Goal LDL <55; started on atorvastatin 40 mg daily.
Tobacco abuse - 1 PPD, has not smoked for 1 week
Supplement use, reports the name of [employer], uses as pre-workout, contains 350 mg of caffeine
Physical Exam
Vital Signs/Labs
Vital Signs
Temp Pulse Resp BP Pulse Ox
98.0 F 91 16 125/68 96
12/10/23 11:25 12/10/23 11:25 12/10/23 11:25 12/10/23 11:25 12/10/23 11:25
12/09/23 12/10/23 12/11/23
06:59 06:59 06:59
Actual Weight 59.4 kg 60.866 kg
12/10/23 07:02
12/10/23 07:02
PT 13.5 Sec (11.4-14.6) 12/08/23 16:11
INR 1.05 12/08/23 16:11
APTT 30.2 Sec (23.4-35.0) 12/08/23 16:11
Magnesium 2.0 mg/dl (1.6-2.3) 12/10/23 07:02
Triglycerides 104 mg/dl (10-149) 12/09/23 03:48
LDL Cholesterol, Calc 161 mg/dl 12/09/23 03:48
VLDL Cholesterol, Calc 20 mg/dl (0-30) 12/09/23 03:48
HDL Cholesterol 52 mg/dl 12/09/23 03:48
LAB Results
12/08/23
16:11
Troponin I < 0.012
Physical Exam
Constitutional: No acute distress and Comfortable
EENT: Anicteric
Cardiovascular: Rhythm & rate is regular, Pedal edema is absent, Systolic murmur absent and S1S2 is normal
Respiratory: Respiratory effort normal and Lungs clear to auscul.
GI: Soft
Neuro/Psych: AO x 3
Other: Skin (Warm, dry, intact)
Data Reviewed
-
Date of Service: December 10, 2023
EKG: Tracing Personally Visualized and interpreted (Telemetry: Sinus rhythm)
Labs: Labs Reviewed by me
[2023-12-10 12:21] LABS: Glycohemoglobin (HgbA1c) 5.8 % (4.0-5.6)
[2023-12-10] MEDS: FLORASTOR 250 MG PO (14:54)
--- NOTE | 2023-12-10 15:51 | CM ---
[facility]
DX Acute on Chronic L Thalamic CVA and Hypertensive Emergency
Plan: back to [facility] when stable
[facility] report# [phone]
[2023-12-10] MEDS: LIPITOR 40 MG PO (16:52)
[2023-12-10] MEDS: AUGMENTIN 875 MG/125 MG 1 TABLET PO (20:40)
[2023-12-10] MEDS: KLONOPIN 0.5 MG PO (22:12)
[2023-12-10] MEDS: SEROQUEL 50 MG PO (22:14)
[2023-12-11 03:30] VITALS: BP 121/71
[2023-12-11 06:00] VITALS: BMI 21.4
[2023-12-11 07:40] VITALS: BP 130/85
[2023-12-11] MEDS: BENADRYL 25 MG PO (07:57)
[2023-12-11] MEDS: FLORASTOR 250 MG PO (07:57)
[2023-12-11] MEDS: ZESTRIL 10 MG PO (07:58)
[2023-12-11] MEDS: SEROQUEL 25 MG PO (07:58)
[2023-12-11] MEDS: COREG 6.25 MG PO (07:58)
[2023-12-11] MEDS: AUGMENTIN 875 MG/125 MG 1 TABLET PO (07:58)
[2023-12-11] MEDS: LOW STRENGTH ASPIRIN 81 MG PO (07:58)
[2023-12-11] MEDS: DEPAKOTE (12 HR RELEASE) 500 MG PO (08:30)
[2023-12-11] MEDS: NICODERM TRANSDERMAL 14 MG TRANSDERM (08:31)
--- NOTE | 2023-12-11 09:03 | W.PN.HOSP.TC ---
Today's Communication/Plan
-
Discharge today
Assessment / Plan
Assessment / Plan
Physical Exam
General: Not in acute distress
HEENT: Normocephalic. Atraumatic
Respiratory: Clear
Cardiac: S1/S2 and Regular Rhythm
GI: Soft, Non Tender, Non Distended and Normal Bowel Sounds
Musculoskeletal: No Cyanosis and No Edema
Neuro: AO x 3. Spontaneously moves all extremities
Psych: Calm
A/P: Patient is a 48y M with no significant PMH who presents to ED from senior living for evaluation of R sided weakness and syncopal event.
Acute on Chronic L Thalamic CVA
Hypertensive Emergency
- CT, CTA and MRI have been completed and were reviewed.
- Imaging suggested old L thalamic infarct / area of encephalomalacia with acute surrounding area of ischemia.
- BP markedly elevated on arrival - improved on nicardipine. since weaned off downgraded to Tele from ICU
- Cardio eval appreciated started on coreg and lisinopril -- blood pressure is now well-controlled on current medications -- continue Coreg 6.25 mg twice daily and lisinopril 10 mg twice daily.
- Neurology evaluation appreciated.
- I discussed with neurology today, plan is to keep patient on Aspirin 81 mg daily only (no Plavix needed) and stop the Depakote patient has been getting
- ASA daily
- neurochecks NIH
- Echo is normal (as per on-call hand edger today)
- Suspect that etiology of his stroke is hypertension related to substance abuse and / or subsequent withdrawal.
- ST/PT/OT eval appreciated
Hyperlipidemia
-goal LDL<55
-started on atorvastatin 40 mg daily
Substance Use Disorder
- Suspected amphetamine abuse - although patient denies this as noted in HPI.
- Continue withdrawal regimen from senior living.
- Add PRN BZDs for breakthrough symptoms of agitation / anxiety.
- UDS.appreciated positive for marijuana only
- No more withdrawal symptoms as per patient's nurse
Productive Cough yellow sputum
-likely pneumonia
-Augmentin started 12/09 planned for 5 day course
-follow up sputum culture
DVT Prophylaxis: SCDs
Code Status: Full
More than 30 minutes spent in discharge including
Final examination of the patient
Summarizing hospital stay
Instructions for continuing care to all relevant caregivers
Preparation of discharge records, prescriptions, and referral forms
Total time spent (in minutes): 42
Anticipated Discharge: Today
Subjective/Interval History
-
Date of Service: December 11, 2023
Patient was seen and examined. He denied any new symptoms or complaints.
Objective Data
-
Labs:
Laboratory Results
12/11/23
08:41
WBC Pending
Hgb Pending
Hct Pending
Plt Count Pending
Sodium Pending
Potassium Pending
Chloride Pending
Carbon Dioxide Pending
BUN Pending
Creatinine Pending
Glucose Pending
Calcium Pending
Vital Signs:
Vital Signs
Temp Pulse Resp BP Pulse Ox
98.1 F 75 18 130/85 98
12/11/23 07:40 12/11/23 07:40 12/11/23 07:40 12/11/23 07:40 12/11/23 07:40
I&O
12/10/23 12/11/23 12/12/23
06:59 06:59 06:59
Intake Total 745 / 745 480 / 480
Output Total 800 / 800 300 / 300
Balance -55 / -55 180 / 180
--- NOTE | 2023-12-11 09:27 | W.PN.CD ---
Today's Communication / Plan
-
-Continue Coreg 6.25 mg twice daily and lisinopril 10 mg twice daily.
-TTE today; if unremarkable, no further cardiac recommendations at this time.
Impression / Plan
-
Hypertensive emergency
-Blood pressure remains controlled.
-Continue Coreg 6.25 mg twice daily and lisinopril 10 mg twice daily.
-TSH normal.
CVA, acute on chronic lateral left femoral neck infarct
-TTE today; if unremarkable, no further cardiac recommendations at this time.
-Neurology following.
Dyslipidemia
-Lipid panel 12/09/2023: TC 233, LDL 161, HDL 52, TG 104
-Goal LDL <55; started on atorvastatin 40 mg daily, continue.
Tobacco abuse - 1 PPD, has not smoked for 1 week
Supplement use, reports the name of [employer], uses as pre-workout, contains 350 mg of caffeine
Physical Exam
Vital Signs/Labs
Vital Signs
Temp Pulse Resp BP Pulse Ox
98.1 F 75 18 130/85 99
12/11/23 07:40 12/11/23 07:40 12/11/23 07:40 12/11/23 07:40 12/11/23 08:00
12/10/23 12/11/23 12/12/23
06:59 06:59 06:59
Actual Weight 60.866 kg 60.192 kg
PT 13.5 Sec (11.4-14.6) 12/08/23 16:11
INR 1.05 12/08/23 16:11
APTT 30.2 Sec (23.4-35.0) 12/08/23 16:11
Magnesium 2.0 mg/dl (1.6-2.3) 12/10/23 07:02
Triglycerides 104 mg/dl (10-149) 12/09/23 03:48
LDL Cholesterol, Calc 161 mg/dl 12/09/23 03:48
VLDL Cholesterol, Calc 20 mg/dl (0-30) 12/09/23 03:48
HDL Cholesterol 52 mg/dl 12/09/23 03:48
LAB Results
12/08/23
16:11
Troponin I < 0.012
Physical Exam
Constitutional: No acute distress and Comfortable
EENT: Anicteric
Cardiovascular: Rhythm & rate is regular, Pedal edema is absent, Systolic murmur absent and S1S2 is normal
Respiratory: Respiratory effort normal and Lungs clear to auscul.
GI: Soft
Neuro/Psych: AO x 3
Other: Skin (Warm, dry, intact)
Data Reviewed
-
Date of Service: December 11, 2023
EKG: Tracing Personally Visualized and interpreted (Telemetry: Sinus rhythm)
Labs: Labs Reviewed by me
[2023-12-11 10:32] LABS: Blood Urea Nitrogen 27 mg/dl (9-20); Calcium 9.6 mg/dl (8.4-10.2); Carbon Dioxide 23 mmol/L (22-30); Chloride 106 mmol/L (98-107); Estimated Creatinine Clearance 65 ml/min; Glucose 85 mg/dl (70-99); Magnesium 2.1 mg/dl (1.6-2.3); Phosphorus 3.8 mg/dl (2.5-4.5); Potassium 4.8 mmol/L (3.5-5.1); Sodium 141 mmol/L (135-145); eGFR > 60.00
[2023-12-11 10:36] VITALS: BP 139/82
[2023-12-11 12:23] LABS: Hematocrit 36.5 % (39.0-52.0); Hemoglobin 12.2 g/dL (13.0-18.0); Mean Corp Hgb Conc. 33.4 g/dL (33.0-37.0); Mean Corpuscular Hgb 29.3 pg (27.0-31.0); Mean Corpuscular Volume 87.7 fL (80.0-94.0); Mean Platelet Volume 11.3 fL (7.4-10.4); Platelet Count 242 10^3/uL (130-400); Red Blood Cell Count 4.16 10^6/uL (4.70-6.10); Red Cell Dist. Width 14.4 % (11.5-14.5); White Blood Cell Count 11.9 10^3/uL (4.8-10.8)
--- NOTE | 2023-12-11 14:24 | W.PN.UPDATE ---
Update Note
Progress Note Update
Chart reviewed, late acute thalamic ischemic stroke, chronic area of hemorrhage in a separate area of left basal ganglia. CTA head and neck no significant abnormalities.
Uncontrolled hypertension and suspected amphetamine type substance use are likely causes of stroke.
Would have on aspirin 81 mg daily single antiplatelet for antithrombotics.
BP control avoiding smoking and amphetamines
Can stop Depakote upon DC
[2023-12-11 14:35] VITALS: BP 132/98
--- NOTE | 2023-12-11 15:14 | W.DS.TRANS ---
DC Summary - Lining [employer]er
-
Discharge Instructions:
Discharge Diagnosis/Procedures Hypertensive Emergency
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
Late acute thalamic ischemic stroke, chronic
area of hemorrhage in a separate area of left
basal ganglia
Sputum Productive of Yellow Cough
Encephalomalacia
UDS + THC
Headache
Suspect vascular dementia
Substance abuse
Hyperlipidemia
CT Head Results (as per radiologist's report)*
*
IMPRESSION:
Predominantly chronic appearing left basal
ganglia infarct. A component of acute/subacute
infarction in this region is difficult to
exclude. MRI would be of greater sensitivity.
MRI Brain Results (as per radiologist's report
)
IMPRESSION:
Acute on chronic lateral left thalamic infarct.
Diet Low Fat,Low Cholesterol
Activity As tolerated
Driving Restrictions No driving
Other Services PT,OT
Instructions:
Stand-Alone Forms:
Changes to Home Medications: Yes
Discharge Medications:
DC Medications w/original date entered in [facility]
clonazepam 0.5 mg tablet 0.5 mg PO HS Mental Health/Anxiety 12/08/23
diphenhydramine HCl 25 mg tablet 25 mg PO BID ANTIHISTAMINE 12/08/23
quetiapine 25 mg tablet 25 mg PO DAILY Mental Health/Anxiety 12/08/23
quetiapine 50 mg tablet 50 mg PO HS Mental Health/Anxiety 12/08/23
Remove Patch [Remove Nicotine Patch] See Rx Instructions .Route .COMPLEX #28 patches 12/11/23
Saccharomyces boulardii 250 mg capsule 250 mg PO DAILY #14 caps 12/11/23
amoxicillin 875 mg-potassium clavulanate 125 mg tablet 1 tab PO Q12 3 days #6 tabs 12/11/23
aspirin 81 mg chewable tablet 81 mg PO DAILY #30 tabs 12/11/23
atorvastatin 40 mg tablet 40 mg PO QPM #30 tabs 12/11/23
carvedilol 6.25 mg tablet 6.25 mg PO BID #60 tabs 12/11/23
lisinopril 10 mg tablet 10 mg PO BID #60 tabs 12/11/23
nicotine 14 mg/24 hr daily transdermal patch 14 mg transdermal DAILY #28 ea 12/11/23
Home Medication Changes
Amoxicillin-Clavulanate, Aspirin, Atorvastatin, Carvedilol, Lisinopril, Nicotine Patch, and Saccharomyces boulardii are new medications
Pending Results: Yes
Additional Pending Results:
Final results of sputum cultures from hospitalization
Total time spent discharging patient (in min): 42
--- NOTE | 2023-12-11 15:38 | CM ---
Plan: back to [facility] today
[facility] [[email or web address]]
[facility]irm[facility] report# [phone]
[2023-12-11] MEDS: LIPITOR 40 MG PO (16:53)
== END 2023-12-11 19:07 | DRG 64 ==
LOC: 4 WEST ACU 21:01
PROVIDERS: Internal Medicine; ADMITTING PHYSICIAN Hospitalist; ATTENDING PHYSICIAN Hospitalist; CONSULT PHYSICIAN Internal Medicine; CONSULT PHYSICIAN Psychiatry & Neurology Neurology; EMERGENCY PHYSICIAN Emergency Medicine
DX: I63.89 Other cerebral infarction (principal); I61.0 Nontraumatic intracerebral hemorrhage in hemisphere, subcortical; F01.511 Vascular dementia, unspecified severity, with agitation; I16.1 Hypertensive emergency; G81.91 Hemiplegia, unspecified affecting right dominant side; R47.01 Aphasia; G93.89 Other specified disorders of brain; F15.10 Other stimulant abuse, uncomplicated; I10 Essential (primary) hypertension; R47.1 Dysarthria and anarthria; R47.81 Slurred speech; F17.210 Nicotine dependence, cigarettes, uncomplicated; E78.5 Hyperlipidemia, unspecified; Z79.899 Other long term (current) drug therapy; Z87.09 Personal history of other diseases of the respiratory system; Z86.73 Personal history of transient ischemic attack (TIA), and cerebral infarction without residual deficits
CPT/HCPCS: 70450; 70496; 70498; 70553; 71045; 80048; 80053; 80061; 80306; 81003; 82962; 83036; 83735; 84100; 84443; 84484; 85025; 85027; 85610; 85652; 85730; 87070; 87205; 92507; 92523; 92610; 93005; 93306; 96365; 96366; 96375; 97116; 97163; 97166; 97530; 99291; A9575; Q9967

== ENCOUNTER 2023-12-19 09:27 | Emergency (ER) | payer OTHER, SELFPAY ==
[2023-12-19 09:31] VITALS: BP 173/103
[2023-12-19 09:33] VITALS: BP 173/103
--- NOTE | 2023-12-19 09:38 | ED.CVA ---
History of Present Illness
General
Chief Complaint: CVA/TIA Symptoms
Source: patient
Exam Limitations: none
Time Seen by Provider: 12/19/23 09:36
Nursing documentation reviewed up to this point in time: agreed with
Onset of Stroke Symptoms
Onset of symptoms known: No
Time pt last seen normal is known: No
History of Present Illness
History of Present Illness:
48-year-old male with Patricia history of previous stroke, previous pneumothorax high blood pressure presenting to the emergency department today with concerns of confusion and ataxia seen at the [facility] just prior to arrival the last time he was seen
normal was a week ago they are unsure if he has been acting normally more recently he is unable to answer the question. He is fully alert and oriented otherwise. He claims it is noted some right-sided weakness and has been very labile according to
staff as well as well as EMS that he was crying.
Past History
Past History
ED Past Medical History: HTN and Other (Pneumothorax)
ED Past Surgical History: None
Social History
Tobacco: Non-smoker
Alcohol: None
Drug: None
Personal: Single
Living: with family
Review of Systems
Review of Systems
Allergies reviewed?: Yes
All Other Systems: ROS reviewed and negative except as documented in HPI and ROS
Phy Exam
Physical Exam
Physical Exam:
GENERAL: Alert , crying during exam
EYE: pupils equal and reactive
NECK: Supple, no significant adenopathy.
ENT: o/p clr, mmm.
CARDIAC: Regular rate and rhythm .
LUNGS: Clear breath sounds bilaterally, no acute respiratory distress, no wheezes/rales/rhonchi
ABDOMEN: Soft, without focal tenderness, no r/g, no cvat
NEUROLOGICAL: Alert and oriented, no focal neuro deficits 5-5 upper and lower extremity strength normal sensation when palpating bilaterally normal finger-nose and heel vazquez no pronator drift.
SKIN: Warm and dry, skin intact.
MUSCULOSKELETAL: No edema, well perfused.
Course
Orders/Labs/Results
Orders:
Orders
12/19/23 09:33
Electrocardiogram (*1) Urgent
Reason for Study: TIA/Stroke
EKG- Treatment ONCE
12/19/23 09:37
CT Head W/o Iv Contrast Urgent
Comment:
Reason For Exam: recebt stroke, new right sided deficitis today
Bedside Glucose- Treatment ONCE
Cardiac Monitoring- Treatment ONCE
12/19/23 09:38
CMP [Comprehensive Metabolic Panel] Urgent
Complete Blood Count/With Diff Urgent
12/19/23 09:41
Urinalysis Reflex To Culture Urgent
12/19/23 10:53
Aspirin 325 mg PO NOW STA
Clopidogrel Bisulfate [Plavix] 75 mg PO NOW STA
12/19/23 11:21
Carvedilol [Coreg] 6.25 mg PO NOW STA
Lisinopril [Zestril] 10 mg PO NOW STA
Abnormal Lab Results
12/19/23
09:38
WBC 12.8 H 10^3/uL
(4.8-10.8)
RBC 4.26 L 10^6/uL
(4.70-6.10)
Hgb 12.3 L g/dL
(13.0-18.0)
Hct 36.0 L %
(39.0-52.0)
Abs Immat Gran (auto) 0.1 H 10^3/uL
(0-0.05)
Absolute Neuts (auto) 9.1 H 10^3/uL
(1.4-6.5)
Absolute Monos (auto) 0.9 H 10^3/uL
(0.1-0.6)
Lymphocytes % 18.0 L %
(20.5-51.1)
12/19/23 09:38
12/19/23 09:38
Vital Signs
Initial and Last Documented VS:
Initial Vital Signs
Pulse Resp BP Pulse Ox
78 14 173/103 100
12/19/23 09:31 12/19/23 09:31 12/19/23 09:31 12/19/23 09:31
Last Documented Vital Signs
Pulse Resp BP Pulse Ox
69 16 181/108 82
12/19/23 11:00 12/19/23 11:00 12/19/23 11:00 12/19/23 11:00
MDM/Problems Addressed
MDM/Problems Addressed:
48-year-old male presenting to the emergency department today with concerns of some ataxia and some unclear symptoms at the present does have a history of recent stroke diagnosed 11 days ago. Here his neurologic examination does not have any
specific focality. Initially nursing staff felt that his right side seem to be weaker but he was able to push and pull against resistance and against gravity without difficulty bilaterally on exam here. CT scan showing ongoing findings without
significant change. Case discussed with neurology who feels there is not significant changes required at this time. Patient discharged in stable condition with resolution of symptoms at this time. Blood pressure was elevated here he did not get
his morning blood pressure medications he was given a dose of his normal medications prior to discharge.
*Critical Care Note
Total Time (30-74mins, 75-104mins- exclusive of procedures): Not Applicable
ED Attending Note
-
Portions of this chart may have been created with voice recognition software.� Occasional wrong word or��sound alike� substitutions may have occurred due to the inherent limitations of voice recognition software.
Discharge Plan
Departure
Patient Disposition: [facility]
Date of Disposition: 12/19/23
Time of Disposition: 11:22
Patient with high blood pressure during this ER visit?: Yes
Condition: Good
Covid-19: Not Applicable
Discharge Problem:
CVA (cerebral vascular accident)
Instructions: BLOOD PRESSURE
Prescriptions:
No Action
quetiapine 25 mg Tablet
25 mg PO DAILY
clonazepam 0.5 mg Tablet
0.5 mg PO HS
diphenhydramine HCl 25 mg Tablet
25 mg PO BID
quetiapine 50 mg Tablet
50 mg PO HS
Saccharomyces boulardii 250 mg Capsule
250 mg PO DAILY Qty: 14 0RF
carvedilol 6.25 mg Tablet
6.25 mg PO BID Qty: 60 1RF
amoxicillin-pot clavulanate 875-125 mg Tablet
1 tab PO Q12 3 Days Qty: 6 0RF
atorvastatin 40 mg Tablet
40 mg PO QPM Qty: 30 1RF
aspirin 81 mg Tablet,Chewable
81 mg PO DAILY Qty: 30 1RF
nicotine 14 mg/24 hr Patch 24 Hour
14 mg transdermal DAILY Qty: 28 0RF
Remove Patch [Remove Nicotine Patch]
See Rx Instructions .ROUTE .COMPLEX Qty: 28 0RF
Rx Instructions:
Remove nicotine patch nightly
lisinopril 10 mg Tablet
10 mg PO BID Qty: 60 1RF
Referrals:
[facility] [Family Provider] -
Activity Restrictions/Additional Instructions:
You have reassessment for your stroke symptoms.. No acute changes please follow-up with neurology department for any worsening, new or concerning symptoms.
Interventions
Interventions:
*Risk Screen - Suicide Last Done: 12/19/23 10:21
*Neglect/Abuse Screening Last Done: 12/19/23 10:21
*ED COVID-19 Vaccine History Last Done: 12/19/23 10:21
ED- Pulmonary Assessment Last Done: 12/19/23 09:35
ED- Neurological Assessment Last Done: 12/19/23 09:34
ED- Cardiac Assessment Last Done: 12/19/23 09:35
Discharge Date and Time
Print Language: MONGOLIAN
[2023-12-19 09:53] LABS: % Basophils 0.5 % (0-2); % Eosinophils 2.6 % (0-6); % Immature Granulocytes 0.5 % (0-0.5); % Monocytes 7.3 % (1.7-9.3); % Neutrophils 71.1 % (42.2-75.2); Absolute Basophils 0.1 10^3/uL (0-0.2); Absolute Eosinophils 0.3 10^3/uL (0-0.7); Absolute Immature Granulocytes 0.1 10^3/uL (0-0.05); Absolute Lymphocytes 2.3 10^3/uL (1.2-3.4); Absolute Monocytes 0.9 10^3/uL (0.1-0.6); Absolute Neutrophils 9.1 10^3/uL (1.4-6.5); Hemoglobin 12.3 g/dL (13.0-18.0); Mean Corp Hgb Conc. 34.2 g/dL (33.0-37.0); Mean Corpuscular Hgb 28.9 pg (27.0-31.0); Mean Corpuscular Volume 84.5 fL (80.0-94.0); Mean Platelet Volume 10.1 fL (7.4-10.4); Nucleated Red Blood Cells % 0 % (-); Platelet Count 371 10^3/uL (130-400); Red Blood Cell Count 4.26 10^6/uL (4.70-6.10); Red Cell Dist. Width 13.4 % (11.5-14.5); White Blood Cell Count 12.8 10^3/uL (4.8-10.8)
[2023-12-19 10:00] VITALS: BP 175/85
[2023-12-19 10:02] VITALS: BP 175/85
[2023-12-19 10:15] LABS: ALT (SGPT) 47 U/L (0-50); AST (SGOT) 34 U/L (17-59); Albumin 4.3 g/dl (3.5-5.0); Alkaline Phosphatase 68 U/L (38-126); Blood Urea Nitrogen 19 mg/dl (9-20); Calcium 9.7 mg/dl (8.4-10.2); Carbon Dioxide 29 mmol/L (22-30); Chloride 103 mmol/L (98-107); Glucose 78 mg/dl (70-99); Potassium 4.1 mmol/L (3.5-5.1); Sodium 141 mmol/L (135-145); Total Bilirubin 0.5 mg/dl (0.2-1.3); Total Protein 7.2 g/dl (6.3-8.2); eGFR > 60.00
[2023-12-19 11:00] VITALS: BP 181/108
[2023-12-19] MEDS: ASPIRIN 325 MG PO (11:05)
[2023-12-19] MEDS: PLAVIX 75 MG PO (11:05)
[2023-12-19] MEDS: ZESTRIL 10 MG PO (11:25)
[2023-12-19] MEDS: COREG 6.25 MG PO (11:25)
== END 2023-12-19 11:45 ==
LOC: EMR 09:27
PROVIDERS: Physician Assistant; EMERGENCY PHYSICIAN Emergency Medicine
DX: I63.9 Cerebral infarction, unspecified (principal); R27.0 Ataxia, unspecified; Z86.73 Personal history of transient ischemic attack (TIA), and cerebral infarction without residual deficits; I10 Essential (primary) hypertension
CPT/HCPCS: 99284; 70450; 80053; 85025; 93005